=== PATIENT | male | born 1945 | race Caucasian/White ===

== ENCOUNTER → 2018-04-26 | Outpatient (CLI) | payer SELFPAY ==
[~2018-04-26] MED LIST: ACET325T9 PO; ALLO300T PO; ASPI-630 PO; CHOL500016 PO; CYAN10005 PO; GABA-586 PO; GLUC1CAP48 PO; LISI-334 PO; METF500T16 PO; MULT1TAB52 PO; NPH,100V5 SQ; SIMV20TA3 PO; TERA10CA3 PO; TRAM50TA PO; VITA1TAB19 PO
--- NOTE | 2018-04-26 14:24 | EKG ---
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
[2018-04-26 14:53] LABS: BASO % 1 % (0-3); EOS # 0.3 x10^3/uL (0.0-0.7); EOS % 3 % (0-3); HEMATOCRIT 39.5 % (39.0-53.0); HEMOGLOBIN 13.5 g/dL (13.0-17.5); LYMPH # 1.3 x10^3/uL (1.0-4.8); LYMPH % 18 % (24-48); MEAN CORPUSCULAR HEMOGLOBIN 34 pg (25-35); MEAN CORPUSCULAR HGB CONC 34 g/dL (31-37); MEAN CORPUSCULAR VOLUME 99 fL (79-100); MONO # 0.9 x10^3/uL (0.0-1.1); MONO % 12 % (0-9); NEUT # 5.1 x10^3uL (1.8-7.7); NEUT % 67 % (31-73); PLATELET COUNT 153 x10^3/uL (140-400); RED BLOOD COUNT 3.99 x10^6/uL (4.30-5.70); RED CELL DISTRIBUTION WIDTH 13.7 % (11.5-14.5); WHITE BLOOD COUNT 7.7 x10^3/uL (4.0-11.0)
[2018-04-26 15:12] LABS: ALBUMIN 3.5 g/dL (3.4-5.0); ALBUMIN/GLOBULIN RATIO 1.1 (1.0-1.7); CALCIUM 9.7 mg/dL (8.5-10.1); CREATININE 1.6 mg/dL (0.7-1.3); GFR 42.5; POTASSIUM 4.4 mmol/L (3.5-5.1); TOTAL BILIRUBIN 0.4 mg/dL (0.2-1.0); TOTAL PROTEIN 6.7 g/dL (6.4-8.2)
[2018-04-27 02:17] LABS: HEMOGLOBIN A1C 8.6 % (4.8-5.6)
== END | disposition home or self-care (01) ==
LOC: SURGPAT 13:17
PROVIDERS: ATTEND Neurological Surgery
DX: Z01.818 Encounter for other preprocedural examination (principal); I10 Essential (primary) hypertension
CPT/HCPCS: 36415; 80053; 83036; 85025; 87641; 93005

== ENCOUNTER 2018-05-06 08:19 | Day surgery (SDC) | payer SELFPAY ==
[~2018-05-06] VITALS: Ht 177.8 cm; Wt 131.5 kg
[~2018-05-06 08:19] MED LIST changes: +BACITRACIN 50,000 UNIT in IV NORMAL SALINE 1000ML BAG 1,000 ML IRR ONE; +BUPIVAC MPF-EPI 0.5%-1:200000 30 ML VIAL. INJ ONE; +GELATIN SPONGE SIZE 100. ONE; +HYDROmorphone 2 MG/ML VIAL IV PRN; +IV RINGERS,LACTATED 1000ML 1,000 ML IV SCH; +KETOROLAC 60 MG/2 ML INJ FOR OR. ONE; +LIDOCAINE 1% PF 2 ML VIAL. ID PRN; +MORPHINE SULFATE 2 MG/ML VIAL. IV PRN; +ONDANSETRON PF 4 MG/2 ML VIAL. IV PRN; +PROCHLORPERAZINE 10 MG/2 ML VIAL. IV PRN; +THROMBIN TOPICAL 20,000 UNIT SPRAY.SYRN KIT TP ONE; +fentaNYL PF VIAL 100 MCG/2 ML VIAL IV PRN
[2018-05-06] MEDS ORDERED: ceFAZolin SODIUM 3 GM in IV DEXTROSE 5% 100ML 100 ML IV PRN (09:00)
[2018-05-06] MEDS ORDERED: PROPOFOL 20 ML IV ONE ×2 (09:52→13:16)
[2018-05-06] MEDS ORDERED: DEXAMETHASONE SOD PHOS 20 MG/5 ML VIAL. ONE (09:53)
[2018-05-06] MEDS ORDERED: ONDANSETRON PF 4 MG/2 ML VIAL. ONE (09:53)
[2018-05-06] MEDS ORDERED: SUCCINYLCHOLINE 200 MG/10 ML VIAL. ONE (09:53)
[2018-05-06] MEDS ORDERED: ROCURONIUM 50 MG/5 ML VIAL. ONE (09:54)
[2018-05-06] MEDS ORDERED: LIDOCAINE 2% PF Vial for OR 5 ML VIAL. ONE (09:55)
[2018-05-06] MEDS ORDERED: REMIFENTANIL 2 MG VIAL. IV ONE (10:18)
[2018-05-06] MEDS ORDERED: MIDAZOLAM HCL/PF 2 MG/2 ML VIAL. ONE (10:21)
[2018-05-06] MEDS ORDERED: fentaNYL PF VIAL 100 MCG/2 ML VIAL ONE (10:21)
[2018-05-06] MEDS ORDERED: PROPOFOL 50 ML IV ONE ×2 (10:22→12:22)
[2018-05-06] MEDS ORDERED: PHENYLEPHRINE in 0.9% NACL PF 1 MG/10 ML SYRINGE. IV ONE ×2 (10:30→13:16)
[2018-05-06] MEDS ORDERED: ePHEDrine PF IN SALINE 50 MG/5 ML DISP.SYRIN IV ONE (11:13)
[2018-05-06] MEDS ORDERED: POTASSIUM CL 20MEQ-0.45% NACL 1,000 ML IV SCH (12:10)
[2018-05-06] MEDS ORDERED: MAGNESIUM HYDROXIDE 2,400 MG/30 ML ORAL.SUSP. PO PRN (12:15)
[2018-05-06] MEDS ORDERED: traMADol 50 MG TABLET PO PRN (12:15)
[2018-05-06] MEDS ORDERED: diphenhydrAMINE HCL 25 MG CAPSULE PO PRN (12:15)
[2018-05-06] MEDS ORDERED: ACETAMINOPHEN 325 MG TABLET. PO PRN (12:15)
[2018-05-06] MEDS ORDERED: diphenhydrAMINE 50 MG/ML VIAL IV PRN (12:15)
[2018-05-06] MEDS ORDERED: MAG HYDROX/ALUMINUM HYD/SIMETH 30 ML ORAL.SUSP PO PRN (12:15)
[2018-05-06] MEDS ORDERED: fentaNYL PF VIAL 100 MCG/2 ML VIAL IV PRN (12:15)
[2018-05-06] MEDS ORDERED: HYDROcodone/APAP 7.5/325MG 1 TAB TABLET PO PRN ×2 (12:15)
[2018-05-06] MEDS ORDERED: CALCIUM CARBONATE 500 MG TAB.CHEW PO PRN (12:15)
[2018-05-06] MEDS ORDERED: 0.9 % SODIUM CHLORIDE 10 ML DISP.SYRIN. IV PRN (12:15)
[2018-05-06] MEDS ORDERED: DEXTROSE 50% 25 GM / 50ML DISP.SYRIN. IV PRN (12:15)
[2018-05-06] MEDS ORDERED: CYANOCOBALAMIN (VITAMIN B-12) 1,000 MCG TABLET. PO SCH (13:00)
[2018-05-06] MEDS ORDERED: LISINOPRIL 20 MG TABLET PO SCH (13:00)
[2018-05-06] MEDS ORDERED: metFORMIN 500 MG TABLET PO SCH (13:00)
[2018-05-06] MEDS ORDERED: ALLOPURINOL 300 MG TABLET. PO SCH (13:00)
[2018-05-06] MEDS ORDERED: DESFLURANE > 120 MINUTES IH ONE (13:34)
[2018-05-06] MEDS ORDERED: GABAPENTIN 300 MG CAPSULE. PO SCH (14:00)
[2018-05-06] MEDS ORDERED: METHOCARBAMOL 750 MG TABLET PO SCH (14:00)
[2018-05-06] MEDS: fentaNYL PF VIAL 100 MCG/2 ML VIAL IV PRN ×2 (15:43→15:54)
[2018-05-06] MEDS ORDERED: INSULIN LISPRO 100 UNIT/ML 3ML VIAL. SQ ONE (15:45)
--- NOTE | 2018-05-06 16:12 | OP ---
DATE OF SURGERY: 05/06/2018 PREOPERATIVE DIAGNOSIS: Lumbar spinal stenosis, lateral recess stenosis, L3-L4 and L4-L5. POSTOPERATIVE DIAGNOSIS: Lumbar spinal stenosis, lateral recess stenosis, L3-L4 and L4-L5. OPERATION PERFORMED: Bilateral hemilaminotomies with decompression of dura and nerve root L3-L4 and L4-L5. The operation was done with EMG monitoring, fluoroscopy, microscopic dissection. SURGEON: Cristhian Griffith M.D. FLOOR RENOVATOR: DAVIE Schmidt assisted with the exposure, the multilevel microdecompression as well as the closure. OPERATIVE INDICATIONS: The patient is a very pleasant 72-year-old man who developed intractable bilateral hip and leg pain, which failed conservative measures including epidural steroids and physical therapy. On imaging studies, he had multilevel disease, but the principal problems were at L3-L4 and L4-L5 bilaterally with a nerve root compression and I recommended bilateral lumbar microdecompressive surgery. I spoke about the surgery, the risks, technique and expected postoperative course and he wished to go ahead. DESCRIPTION OF PROCEDURE: Following general endotracheal anesthesia, the patient was positioned prone on the Arian frame. His lumbar region was prepped and draped in standard fashion. GONZALO hose and AV impulse boots were applied for DVT prophylaxis. A microscope was draped. Fluoroscopy was draped and brought into field. Monitoring was established. Ancef 3 grams was given less than 1 hour prior to initiation of the surgery. Using fluoroscopic guidance, a midline incision was made extending from L3 through L5. I dissected down skin and subcutaneous tissue, reflected the paraspinal muscles on the left side and brought in the microscope and using the high-speed air drill and microscopic technique beginning at L3-L4, I burred down a generous hemilaminotomy. I trimmed away very thickened ligamentum flavum and performed a partial foraminotomy. There was considerable debris and thickened ligament along with spurring and hypertrophic bone and I trimmed this material away, peeled ligamentum flavum and exposed the dura and the exiting L4 root. I did perform partial foraminotomy. I did palpate the disc, which was bulging slightly, but was extremely firm and no discectomy was warranted. I went down to L4-L5 and performed the identical operation at L4-L5. At both of these levels, the nerve roots were pushed quite far medially and under considerable pressure and following the decompression, the nerves were moving laterally nicely. Again, no discectomy was performed at L4-L5. There were a few epidural veins, which I coagulated. I did use small amounts of bone wax. I then went to the right side and in a similar fashion, operated at L3-L4 and L4-L5. At L3-L4 after decompressing the dura and the exiting root and performing a partial foraminotomy, I found that the roots were compressed, but not nearly as severely as on the left at L3-L4 and L4-L5. There was bulging disc, but not as severe. Again, it was very firm and no discectomy was warranted. L4-L5 on the right side was severely affected with the nerves quite tightly compressed and pushed medially and again, there was a wide decompression and there were nerves were moving laterally at the end of the operation after trimming away very thickened ligamentum flavum and performing a partial foraminotomy. Again, there was some disc bulging, but again the disc was extremely firm and no discectomy was warranted. At this point, then I irrigated copiously with antibiotic solution. I removed the retractor, obtained hemostasis in the muscle. I then, after irrigating, closed the wound in layers with absorbable suture and skin was closed with 4-0 subcuticular stitch. The operation went very well. The patient was taken from the room in great condition. I was quite pleased with the surgery. CRISTHIAN GRIFFITH MD DR: MICHELLE/romero JOB#: [id number] / [id number] LARRY
[2018-05-06] MEDS ORDERED: HYDR-971 PO (16:26)
[2018-05-06] MEDS ORDERED: METH-38 PO (16:29)
[2018-05-06 17:25] VITALS: BP 137/68
[2018-05-06] MEDS ORDERED: TERAZOSIN 5 MG CAPSULE. PO SCH (21:00)
[2018-05-06] MEDS ORDERED: SIMVASTATIN 20 MG TABLET PO SCH (21:00)
[2018-05-06] MEDS ORDERED: NON FORMULARY ITEM (Gluc 2KCL/Chondr/Coll Hy/Hy Ac (Glucosamine & Chondroitin Cap) 1 EACH) PO SCH (21:00)
[2018-05-06] MEDS ORDERED: INSULIN GLARGINE 300 UNITS/3 ML INSULN.PEN. SQ SCH (21:00)
[2018-05-06] MEDS ORDERED: DOCUSATE SODIUM 100 MG CAPSULE. PO SCH (21:00)
[2018-05-07] MEDS ORDERED: VITAMIN B COMPLEX TABLET. PO SCH (09:00)
[2018-05-07] MEDS ORDERED: ASPIRIN CHEWABLE 81 MG TABLET. PO SCH (09:00)
[2018-05-07] MEDS ORDERED: CHOLECALCIFEROL (VITAMIN D3) 5,000 UNIT CAPSULE PO SCH (09:00)
[2018-05-07] MEDS ORDERED: MULTIVITAMIN with MINERAL TABLET. PO SCH (09:00)
--- NOTE | 2018-05-07 11:00 | PREOP HP ---
DATE OF SERVICE: 05/06/2018 HISTORY OF PRESENT ILLNESS: The patient is a pleasant 72-year-old who is having difficulty with posterior thigh and buttock pain, left greater than right. The problem started about 1 year ago and has been worse since August. He says the pain is constant and increasing with bending. Ibuprofen helps him. He has been taking ibuprofen and gabapentin. The pain is in his posterior thighs and buttocks and can reach a 10/10. He has had epidural steroid injections without help. He has tried physical therapy without help. He says he tries to go distances, but must use a wheelchair because pain is severe. He did see a chiropractor multiple times again without significant benefit. He says that his legs are diffusely weak. PAST MEDICAL HISTORY: Arthritis, gout, swelling of limbs, diabetes. PAST SURGICAL HISTORY: Denies. FAMILY HISTORY: Cancer and spine problems. 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 . Denies regular exercise. Denies substance abuse. Tobacco use and alcohol consumption. ALLERGIES: No known drug allergies. CURRENT MEDICATIONS: Metformin, gabapentin rely on allopurinol, lisinopril, terazosin, simvastatin, B12, D3, ibuprofen, aspirin 81, glucosamine, multivitamin. REVIEW OF SYSTEMS: A 12-point review of systems was obtained and is noncontributory except that mentioned above. PHYSICAL EXAMINATION: NEUROSURGERY EXAMINATION: GENERAL APPEARANCE: Alert, pleasant, no acute distress. HEENT: Normocephalic, atraumatic. SKIN: Warm and dry. MUSCULOSKELETAL: Lumbar paraspinal muscle bulk is normal, restricted range of motion of lumbar spine, foci-ri-mevpehjj tenderness of lower lumbar spine with palpation, normal range of motion of the lower extremities bilaterally. EXTREMITIES: No clubbing, cyanosis or edema. NEUROLOGIC: Alert and oriented x 3. Normal recent and remote memory. Strength 5/5 in bilateral lower extremities, sensory was intact to light touch in bilateral lower extremities, reflexes were present and symmetric in the lower extremities bilaterally, negative straight leg raising bilaterally, normal gait. IMAGING: Reviewed. I reviewed a lumbar MRI scan. On that study, there are multiple abnormalities. At L4-L5, there is severe lumbar spinal stenosis due to disk bulging and hypertrophic facets. At L3-L4, there is severe spinal stenosis due to disk bulging and hypertrophic facets. At L2-L3, there is a moderate canal stenosis. At L1-L2, there is again moderate canal stenosis, which is more significant on the right side related to moderate disc herniation on the right side at that level. ASSESSMENT/ PLAN: I believe the problems at L3-L4 and L4-L5 are responsible for the majority of his pain. I recommended them that we decompress these levels. It may be that some of these symptoms are from the degenerative disc problems at L1-L2 and L2-L3 and I explained that he may have some residual pain following that decompression, but I felt that decompressing L3-L4 and L4-L5 would offer him significant relief with limited risks. He understands the rationale, the technique and the risks and the expected postoperative course. He would like to go ahead with surgery. We will make the arrangements. MARÍA GRIFFITH MD DR: MICHELLE/romero JOB#: [id number] / [id number] LARRY
--- NOTE | 2018-05-08 18:07 | PATHOLOGY ---
[facility] Accession Number: [id number] . 01 Material submitted: . LUMBAR DECOMPRESSION . 01 Clinical history: . Lumbar stenosis and neurogenic claudication . 02 Diagnosis: Segments of fibrocartilaginous, fibroadipose, and skeletal muscle tissue and bone, lumbar decompression: - Degenerative changes of fibrocartilaginous tissue. LBQ/05/08/2018 . 02 Comment: Sections of the lumbar decompression show degenerative changes of fibrocartilaginous tissue. There is no evidence of an acute inflammatory process or malignancy. There are focal deposits of polarizable crystalline material identified within fibrocartilaginous tissue. (JPM/db; 05/08/18) . 02 Electronically signed: . Aman Reyes MD, Pathologist NPI- [id number] . 01 Gross description: . Received in formalin labeled "Geovani Sumner, lumbar decompression," are several pieces of glistening, fibrous tissue measuring 6.1 x 5.6 x 3.7 cm in aggregate dimensions, containing small fragments of possible bone. The tissue submitted representatively in cassette A1, following decalcification. (TSD; 05/07/2018) TOB/TOB . 02 Microscopic: . Y . 02 Pathologist provided ICD-10: M51.36 . 02 CPT . 721657, 573540 Specimen Comment: A courtesy copy of this report has been sent to Specimen Comment: [phone], . Specimen Comment: Report sent to / DR OVIEDO Performed at: [address], [place], [place] [id number] MD Jose Daniel Gonzalez MD Phone: [phone] Performed at: 02 [facility] [address] [place], [place] [id number] MD Aman Reyes MD Phone: [phone]
== END 2018-05-06 17:35 | disposition home or self-care (01) ==
LOC: SURG 08:19
PROVIDERS: ATTEND Neurological Surgery
DX: M48.061 Spinal stenosis, lumbar region without neurogenic claudication (principal); M51.16 Intervertebral disc disorders with radiculopathy, lumbar region; M19.90 Unspecified osteoarthritis, unspecified site; E11.9 Type 2 diabetes mellitus without complications; M10.9 Gout, unspecified; Z72.89 Other problems related to lifestyle; Z72.0 Tobacco use; Z79.84 Long term (current) use of oral hypoglycemic drugs; Z79.899 Other long term (current) drug therapy
CPT/HCPCS: 63030; 82962; J0330; J0780; J1100; J1885; J2001; J2250; J2370; J2405; J2704; J3010; J3490; J7030; J7120; 76000; 88304; 88311; A7015; J1815

== ENCOUNTER → 2019-06-11 | Outpatient (CLI) | payer MEDICARE ==
[~2019-06-11] MED LIST changes: -BACITRACIN 50,000 UNIT in IV NORMAL SALINE 1000ML BAG 1,000 ML IRR ONE; -BUPIVAC MPF-EPI 0.5%-1:200000 30 ML VIAL. INJ ONE; +CYAN-25 PO; -CYAN10005 PO; -GABA-586 PO; +GABA300C18 PO; -GELATIN SPONGE SIZE 100. ONE; +HYDR-3164 PO; -HYDROmorphone 2 MG/ML VIAL IV PRN; -IV RINGERS,LACTATED 1000ML 1,000 ML IV SCH; -KETOROLAC 60 MG/2 ML INJ FOR OR. ONE; -LIDOCAINE 1% PF 2 ML VIAL. ID PRN; +METH-38 PO; -MORPHINE SULFATE 2 MG/ML VIAL. IV PRN; -ONDANSETRON PF 4 MG/2 ML VIAL. IV PRN; -PROCHLORPERAZINE 10 MG/2 ML VIAL. IV PRN; -THROMBIN TOPICAL 20,000 UNIT SPRAY.SYRN KIT TP ONE; -fentaNYL PF VIAL 100 MCG/2 ML VIAL IV PRN
--- NOTE | 2019-06-11 13:25 | CARD ---
MR#: [id number] Date of Study: 06/11/2019 Ordering Physician: MEREDITH HESTER, Referring Physician: MEREDITH HESTER, Tech: Ana Nassar APPROVED REPORT EXAM: Two-dimensional and M-mode echocardiogram with Doppler and color Doppler. Other Information HR: 69bpm INDICATION Pre-Op RISK FACTORS Hypertension Diabetes 2D DIMENSIONS RVDd3.2 (2.9-3.5cm)Left Atrium(2D)3.9 (1.6-4.0cm) IVSd1.1 (0.7-1.1cm)Aortic Root(2D)3.3 (2.0-3.7cm) LVDd5.5 (3.9-5.9cm)LVOT Diameter2.1 (1.8-2.4cm) PWd1.2 (0.7-1.1cm)LVDs3.1 (2.5-4.0cm) FS (%) 43.6 %SV110.3 ml LVEF(%)74.2 (>50%) Aortic Valve AoV Peak David.117.5cm/sAoV VTI25.3cm AO Peak GR.5.5mmHgLVOT Peak David.95.4cm/s AO Mean GR.4mmHgAVA (VMAX)2.89cm2 Mitral Valve MV E Aoljuxjl20.1cm/sMV DECEL [id number] MV A Byrowtkr50.2cm/sE/A Ratio0.7 Pulmonary Valve PV Peak Ssbxjmcn54.6cm/s Tricuspid Valve TR P. Tqckaayz701kn/sRAP SWGWSAPC5veXq TR Peak Gr.54fkGcKECB09nrWv Pulmonary Vein S1 Fxifqbcc32.7cm/sD2 Wqefmtbv35.8cm/s PVa valxazqq569ahae LEFT VENTRICLE The left ventricle is normal size. There is mild to moderate concentric left ventricular hypertrophy. The left ventricular systolic function is normal. The Ejection Fraction is 55%. There is normal LV s egmental wall motion. Transmitral Doppler flow pattern is Grade I-abnormal relaxation pattern. RIGHT VENTRICLE The right ventricle is mildly dilated. There is normal right ventricular wall thickness. The right ve ntricular systolic function is normal. ATRIA The left atrium size is normal. The right atrium is moderately dilated. The interatrial septum is int act with no evidence for an atrial septal defect or patent foramen ovale as noted on 2-D or Doppler i maging. AORTIC VALVE The aortic valve is calcified but opens well. Doppler and Color Flow revealed no significant aortic r egurgitation. There is no significant aortic valvular stenosis. MITRAL VALVE The mitral valve is normal in structure and function. There is no evidence of mitral valve prolapse. There is no mitral valve stenosis. Doppler and Color-flow revealed trace mitral regurgitation. TRICUSPID VALVE The tricuspid valve is normal in structure and function. Doppler and Color Flow revealed trace tricus pid regurgitation with an estimated PAP of 28 mmHg. There is no tricuspid valve prolapse or vegetatio n. There is no tricuspid valve stenosis. PULMONIC VALVE The pulmonic valve is not well visualized. Doppler and Color Flow revealed no pulmonic valvular regur gitation. GREAT VESSELS The aortic root is normal in size. The IVC is normal in size and collapses >50% with inspiration. PERICARDIAL EFFUSION There is no evidence of significant pericardial effusion. Critical Notification Critical Value: No <Conclusion> The left ventricular systolic function is normal. The Ejection Fraction is 55%. There is normal LV segmental wall motion. Transmitral Doppler flow pattern is Grade I-abnormal relaxation pattern. Trace mitral regurgitation. Trace tricuspid regurgitation with an estimated PAP of 28 mmHg. There is no evidence of significant pericardial effusion. Signed by : Phil Chambers, Electronically Approved : 06/11/2019 13:25:20
== END | disposition home or self-care (01) ==
LOC: ECHO 10:43
PROVIDERS: ATTEND Internal Medicine Cardiovascular Disease
DX: Z01.810 Encounter for preprocedural cardiovascular examination (principal); I11.9 Hypertensive heart disease without heart failure; I35.8 Other nonrheumatic aortic valve disorders
CPT/HCPCS: 93306

== ENCOUNTER → 2019-06-23 | Outpatient (CLI) | payer MEDICARE ==
[~2019-06-23] MED LIST changes: +POLY17PO29 PO; +SIMV20TA18 PO; -SIMV20TA3 PO; +TAMS0.4C97 PO
[2019-06-23 09:17] LABS: BASO # 0.1 x10^3/uL (0.0-0.2); BASO % 1 % (0-3); EOS # 0.3 x10^3/uL (0.0-0.7); EOS % 3 % (0-3); HEMOGLOBIN 14.7 g/dL (13.0-17.5); LYMPH # 1.9 x10^3/uL (1.0-4.8); LYMPH % 22 % (24-48); MEAN CORPUSCULAR HEMOGLOBIN 32 pg (25-35); MEAN CORPUSCULAR HGB CONC 34 g/dL (31-37); MEAN CORPUSCULAR VOLUME 96 fL (79-100); MONO % 12 % (0-9); NEUT # 5.4 x10^3/uL (1.8-7.7); NEUT % 63 % (31-73); PLATELET COUNT 167 x10^3/uL (140-400); RED BLOOD COUNT 4.56 x10^6/uL (4.30-5.70); RED CELL DISTRIBUTION WIDTH 13.7 % (11.5-14.5); WHITE BLOOD COUNT 8.7 x10^3/uL (4.0-11.0)
[2019-06-23 09:26] LABS: PROTHROMBIN TIME PATIENT 12.9 SEC (11.7-14.0)
[2019-06-23 09:36] LABS: ALBUMIN 3.6 g/dL (3.4-5.0); CALCIUM 9.6 mg/dL (8.5-10.1); CREATININE 1.4 mg/dL (0.7-1.3); GFR 49.4; POTASSIUM 4.7 mmol/L (3.5-5.1)
[2019-06-23 10:06] LABS: BILIRUBIN,URINE NEGATIVE (NEG); CLARITY,URINE CLEAR; COLOR,URINE YELLOW; NITRITE,URINE NEGATIVE (NEG); PH,URINE 5.5; PROTEIN,URINE NEGATIVE (NEG-TRACE)
[2019-06-23 10:12] LABS: BACTERIA,URINE 0 /HPF (0-FEW); RBC,URINE 0 /HPF (0-2); SQUAMOUS EPITHELIAL CELL,UR FEW /LPF; WBC,URINE OCC /HPF (0-4)
--- NOTE | 2019-06-24 13:22 | RAD ---
PA and lateral chest. HISTORY: Preop evaluation, right knee replacement PA and lateral views were taken of the chest. Heart is upper normal in size. There is not evidence of heart failure. There is no pleural effusion. There are no confluent infiltrates. There is hypertrophic change in the thoracic spine. IMPRESSION: 1. No acute chest disease. Electronically signed by: Hoang Aggarwal MD (06/24/2019 1:19 PM) [facility]
== END | disposition home or self-care (01) ==
LOC: SURGPAT 13:12
PROVIDERS: ATTEND Orthopaedic Surgery
DX: Z01.818 Encounter for other preprocedural examination (principal); M17.11 Unilateral primary osteoarthritis, right knee; I10 Essential (primary) hypertension
CPT/HCPCS: 36415; 71046; 80048; 81001; 82040; 82306; 85025; 85610; 85651; 85730; 87641

== ENCOUNTER → 2019-10-16 | Outpatient (CLI) | payer MEDICARE, OTHER ==
[2019-10-16 15:07] LABS: BASO # 0.1 x10^3/uL (0.0-0.2); BASO % 1 % (0-3); EOS # 0.2 x10^3/uL (0.0-0.7); EOS % 3 % (0-3); HEMOGLOBIN 13.9 g/dL (13.0-17.5); LYMPH # 1.9 x10^3/uL (1.0-4.8); LYMPH % 22 % (24-48); MEAN CORPUSCULAR HEMOGLOBIN 33 pg (25-35); MEAN CORPUSCULAR HGB CONC 33 g/dL (31-37); MEAN CORPUSCULAR VOLUME 98 fL (79-100); MONO # 0.8 x10^3/uL (0.0-1.1); MONO % 10 % (0-9); NEUT # 5.3 x10^3/uL (1.8-7.7); NEUT % 64 % (31-73); PLATELET COUNT 152 x10^3/uL (140-400); RED BLOOD COUNT 4.28 x10^6/uL (4.30-5.70); RED CELL DISTRIBUTION WIDTH 14.8 % (11.5-14.5); WHITE BLOOD COUNT 8.3 x10^3/uL (4.0-11.0)
[2019-10-16 15:16] LABS: BILIRUBIN,URINE NEGATIVE (NEG); CLARITY,URINE CLEAR; COLOR,URINE YELLOW; NITRITE,URINE NEGATIVE (NEG); PH,URINE 5.5; PROTEIN,URINE NEGATIVE (NEG-TRACE); UROBILINOGEN,URINE 0.2 mg/dL (0.2 mg/dL)
[2019-10-16 15:18] LABS: PROTHROMBIN TIME PATIENT 13.6 SEC (11.7-14.0)
[2019-10-16 15:21] LABS: ALBUMIN 3.4 g/dL (3.4-5.0); CALCIUM 9.5 mg/dL (8.5-10.1); CREATININE 1.4 mg/dL (0.7-1.3); GFR 49.3; POTASSIUM 4.5 mmol/L (3.5-5.1)
[2019-10-16 15:29] LABS: BACTERIA,URINE 0 /HPF (0-FEW); RBC,URINE 0 /HPF (0-2)
[2019-10-16 15:30] LABS: SQUAMOUS EPITHELIAL CELL,UR FEW /LPF
[2019-10-17 00:07] LABS: HEMOGLOBIN A1C 6.7 % (4.8-5.6)
== END | disposition home or self-care (01) ==
LOC: SURGPAT 13:28
PROVIDERS: ATTEND Orthopaedic Surgery
DX: M19.90 Unspecified osteoarthritis, unspecified site (principal)
CPT/HCPCS: 36415; 80048; 81001; 82040; 82306; 83036; 85025; 85610; 85651; 85730; 87086; 87641

== ENCOUNTER → 2020-01-30 | Outpatient (CLI) | payer MEDICARE ==
[~2020-01-30] MED LIST changes: +ASPI325T11 PO; +CELE200C PO; +FERR-36 PO; +HYDR-2761 PO; +MULT-445 PO; -MULT1TAB52 PO; +OXYC1TAB15 PO; +VITA25006 PO
== END | disposition home or self-care (01) ==
LOC: SURGPAT 12:48
PROVIDERS: ATTEND Orthopaedic Surgery
DX: Z01.812 Encounter for preprocedural laboratory examination (principal); Z11.59 Encounter for screening for other viral diseases; M17.11 Unilateral primary osteoarthritis, right knee
CPT/HCPCS: 87641; U0003

== ENCOUNTER 2020-02-03 09:47 | Inpatient (IN) | payer MEDICARE ==
--- NOTE | 2020-02-02 17:34 | PDOC1 ---
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 He had back surgery with Dr. hopper, and some of the sciatic symptoms got better but now the knee arthritis has continued to bother him and interfere with activities of daily living. He has started using a cane due to the knee arthritis pain. He has been using narcotic medications for the knee pain, and had cortisone injections into the knee previously. Past Medical History Past Medical History Diabetes, hypertension, gout Cardiovascular: HTN Rheumatologic: Gout Endocrine: Diabetes Past Surgical History Past Surgical History Back surgery 05/06/2018 Carpal tunnel release 11/08/2018 Family History Family History Mothercancer Fathercancer Family History: Cancer Social History Smoke: No ALCOHOL: none Current Medications Current Medications Current Medications Morphine Sulfate 5 mg/Ketorolac Tromethamine 30 mg/Ropivacaine 60 ml/Epinephrine HCl 0.5 mg/Sodium Chloride 100 ml @ 100 mls/hr 1X ONCE INT ART ; Start 02/03/20 at 06:00; Stop 02/03/20 at 06:59 Ondansetron HCl (Zofran) 4 mg PRN Q6HRS PRN IV NAUSEA/VOMITING; Start 02/03/20 at 07:00; Stop 02/04/20 at 06:59 Fentanyl Citrate (Fentanyl 2ml Vial) 25 mcg PRN Q5MIN PRN IV MILD PAIN 1-3; Start 02/03/20 at 07:00; Stop 02/04/20 at 06:59 Fentanyl Citrate (Fentanyl 2ml Vial) 50 mcg PRN Q5MIN PRN IV MODERATE TO SEVERE PAIN; Start 02/03/20 at 07:00; Stop 02/04/20 at 06:59 Morphine Sulfate (Morphine Sulfate) 1 mg PRN Q10MIN PRN IV SEVERE PAIN 7-10; Start 02/03/20 at 07:00; Stop 02/04/20 at 06:59 Ringer's Solution 1,000 ml @ 30 mls/hr Q24H IV ; Start 02/03/20 at 07:00; Stop 02/03/20 at 18:59 Lidocaine HCl (Xylocaine-Mpf 1% 2ml Vial) 2 ml PRN 1X PRN ID PRIOR TO IV START; Start 02/03/20 at 07:00; Stop 02/04/20 at 06:59 Hydromorphone HCl (Dilaudid) 0.5 mg PRN Q10MIN PRN IV SEV PAIN, Second choice; Start 02/03/20 at 07:00; Stop 02/04/20 at 06:59 Prochlorperazine Edisylate (Compazine) 5 mg PACU PRN PRN IV NAUSEA, MRX1; Start 02/03/20 at 07:00; Stop 02/04/20 at 06:59 Active Scripts Active Reported Noxifol-D3 2,500 Unit-1 mg Tab (Vitamin D3/Folic Acid) 2,500 Unit Tablet 1 Tab PO DAILY 30 Days Hydrocodone-Apap 5-325 (Hydrocodone Bit/Acetaminophen) 1 Tab Tablet 1 Tab PO PRN Q6HRS PRN Iron (Ferrous Sulfate) 325 Mg Tablet 1 Tab PO DAILY 30 Days Miralax (Polyethylene Glycol 3350) 17 Gm Powd.pack 1 Pkt PO DAILY Flomax (Tamsulosin Hcl) 0.4 Mg Cap.er.24h 0.8 Mg PO HS Novolin N (Nph, Human Insulin Isophane) 100 Unit/1 Ml Vial 30 Unit SQ BID Lisinopril 20 Mg Tablet 20 Mg PO HS Metformin Hcl 500 Mg Tablet 500 Mg PO HS Simvastatin 20 Mg Tablet 20 Mg PO HS Allopurinol 300 Mg Tablet 300 Mg PO DAILY Allergies Allergies: Coded Allergies: No Known Drug Allergies (Unverified , 10/16/19) ROS Review of System Activity limited due to knee pain. No chest pain. Mild shortness of breath with heavy exertional activities. No syncope, no palpitations. No orthopnea or PND. No angina. Physical Exam General: Alert, Cooperative HEENT: Atraumatic Lungs: Normal air movement Heart: RRR Abdomen: Soft Extremities: Other (The RIGHT knee shows an antalgic gait, walking with flexed knees. There is varus alignment. No masses. Moderate effusion. Tenderness on the joint lines. Range of motion is 5-115 degrees. There is crepitus with range of motion, and pain at the extremes of motion. The knee is stable to varus and valgus stress without subluxation or laxity. Muscle strength is slightly weak for the quadriceps 4+/5 which may be due to pain or avoidance, and does not seem neurogenic, and the muscle tone and bulk is slightly decreased. The hamstring strength is 5/5. The skin is normal with no scars, rashes, lesions or ulcers. Light touch sensation is intact. No edema and no varicosities. Dorsalis pedis pulse is intact and capillary refill is normal. ) Skin: No breakdown, No significant lesion Neuro: Normal speech Images Images Report reviewed, images independently reviewed. The right knee has severe osteoarthritis with zild-ar-ubvr contact, and degenerative loose bodies. These are Kellgren-Jeet grade 3 osteoarthritis changes with narrowing, multiple osteophytes, sclerosis, kweu-zz-tksp contact and malalignment. [facility] [address] [place] [address] IMAGING REPORT Signed PATIENT: LAINE BRANHAM ACCOUNT: [id number] : 1945 LOCATION: [facility] AGE: 73 SEX: M EXAM STATUS: REG CLI ORD. PHYSICIAN: BATSHEVA FIGUEROA MD REASON: PROCEDURE: KNEE RIGHT 2V Examination: 2 views of the right knee and 2 views of the bilateral hips HISTORY: History of right knee pain, hip pain COMPARISON: Knee radiograph from 09/15/2018. Findings: Severe joint space loss identified in the medial, lateral, patellofemoral compartments. Calcified loose body or soft tissue calcification identified in the suprapatellar region of the knee joint. The bilateral femoral heads within the acetabulum. Moderate joint space loss identified in the bilateral hip joints. IMPRESSION: 1. Moderate degenerative changes bilateral hip joints. 2. Severe tricompartmental degenerative changes. 3. Calcified loose body or soft tissue calcification identified in the suprapatellar region of the knee joint. Electronically signed by: Frank Vargas MD (03/20/2019 5:19 PM) [facility] DICTATED and SIGNED BY: FRANK VARGAS MD DATE: 03/20/19 1719 VTE Prophylaxis Ordered VTE Prophylaxis Devices: Yes VTE Pharmacological Prophylaxi: Yes Assessment/Plan Assessment/Plan He has symptomatic severe knee osteoarthritis. We discussed options for treatment. He tried nonoperative treatment previously. We discussed the potential risks of infection, neurovascular injury, bleeding, blood clots, need for revision surgery, or other potential surgical or anesthetic complications. We discussed robotic total knee arthroplasty and my reasoning for use of that equipment. All of his questions about surgery were answered and he desires to proceed. He is here today for elective right total knee arthroplasty with robot assistance. Justicifation of Admission Dx: Justifications for Admission: Justification of Admission Dx: N/A BATSHEVA FIGUEROA MD Feb 02, 2020 17:34
[2020-02-02] MEDS: KETOROLAC 30MG VIAL 30 MG, BUPIVACAINE MPF 0.25% 20 ML, EPINEPHrine 0.5 MG in TOTAL VOL... INT ART SCH (23:22)
[~2020-02-03] VITALS: Ht 172.7 cm; Wt 130.6 kg
[2020-02-03] VITALS (7 sets, daily range): BP systolic 118–144; BP diastolic 55–62
[~2020-02-03 09:47] MED LIST changes: +ACETAMINOPHEN 500 MG TABLET PO PRN; -ASPI325T11 PO; -CELE200C PO; +CELECOXIB 100 MG CAPSULE. PO SCH; +DEXAMETHASONE SOD PHOS 4 MG/ML VIAL ONE; +GLYCOPYRROLATE 1 MG/5 ML VIAL. ONE; +HYDROmorphone 2 MG/ML VIAL IV PRN; +IV RINGERS,LACTATED 1000ML 1,000 ML IV SCH; +LIDOCAINE 1% PF 2 ML VIAL. ID PRN; +LIDOCAINE 2% PF 5 ML VIAL. ONE; +MORPHINE SULFATE 2 MG/ML VIAL. IV PRN; +MORPHINE SULFATE 5 MG, KETOROLAC 30MG VIAL 30 MG, ROPIVacaine 0.5% PF 60 ML, EPINEPHrin... INT ART ONE; +ONDANSETRON PF 4 MG/2 ML VIAL. IV PRN; +ONDANSETRON PF 4 MG/2 ML VIAL. ONE; -OXYC1TAB15 PO; +PROCHLORPERAZINE 10 MG/2 ML VIAL. IV PRN; +PROPOFOL 10 MG/ML (20ML) VIAL. IV ONE; +ROCURONIUM 50 MG/5 ML VIAL. ONE; +TRANEXAMIC ACID 1,000 MG in IV NS 50ML -- 1ST BAG INJ ONE; +TRANEXAMIC ACID 1,000 MG in IV NS 50ML -- 2ND BAG INJ ONE; +ceFAZolin SODIUM 3 GM in IV D5W 100 ML IV PRN; +fentaNYL PF VIAL 100 MCG/2 ML VIAL IV PRN; +fentaNYL PF VIAL 100 MCG/2 ML VIAL ONE
[2020-02-03] MEDS ORDERED: INSULIN LISPRO 100 UNIT/ML 3ML VIAL for OP,RR ONLY. SQ PRN (10:30)
[2020-02-03] MEDS ORDERED: TOBRAMYCIN POWDER 1.2 GM VIAL. ONE (12:54)
[2020-02-03] MEDS ORDERED: VANCOMYCIN 1 GM VIAL. ONE (12:54)
[2020-02-03] MEDS ORDERED: SUCCINYLCHOLINE 200 MG/10 ML VIAL. ONE (12:59)
[2020-02-03] MEDS ORDERED: fentaNYL PF VIAL 100 MCG/2 ML VIAL ONE (14:09)
[2020-02-03] MEDS ORDERED: PROPOFOL 10 MG/ML (20ML) VIAL. IV ONE (14:13)
[2020-02-03] MEDS ORDERED: SEVOFLURANE > 120 MINUTES. IH ONE (14:23)
[2020-02-03] MEDS ORDERED: IV NORMAL SALINE 1000ML BAG 1,000 ML IV SCH (16:16)
--- NOTE | 2020-02-03 16:16 | PDOC4 ---
Operative Note Operative Note Date of Procedure: February 03, 2020 Pre-Op Diagnosis: Unilateral primary osteoarthritis, right knee. M17.11 Post-Op Diagnosis: same Procedure: right total knee arthroplasty with patella resurfacing, robotic assisted, CPT 06473 Surgeon: Batsheva Hernández MD Information Assurance Specialist: NOEMI Herrera Anesthesia: General EBL: 100 mL Specimens Obtained: right knee bone and soft tissue Complications: none Drains: Hemovac plus pain catheter Tourniquet time: 87 Minutes Tourniquet Pressure: 300 mm Hg Indications for Procedure: Knee arthritis pain, affecting quality of life, unrelieved by nonoperative management Findings: Severe osteoarthritis with bone on bone contact and eburnated bone of the femur and the patella. Extensive synovitis in the suprapatellar pouch which required resection of a large amount of synovium for visualization of the anterior femur for sizing. Electrocautery was used during the resection of the synovium but there is more bleeding than usual because of the extensive synovitis and need for extensive synovial resection. Multiple loose bodies. There was a degenerative osteochondral fragment in the distal quadriceps tendon which was resected. Medial collateral release from the tibia and downsizing of the tibia and removal of osteophytes was required for balancing. Implants: Galindo [employer] Nephew Journey II Total Knee System, Size 6 right bicruciate stabilized Journey II BCS cobalt chrome femoral component, size 5 right Journey nonporous tibial baseplate, size 3-4 12 mm right Journey II BCS XLPE articular insert, 32 mm oval Samina II resurfacing patellar component Procedure in Detail: The patient was identified in the preoperative holding area, and the correct right lower extremity was marked by me. The patient was taken to the operating room where the patient was anesthetized by the Department of Anesthesia. Preoperative antibiotics were given intravenously. Tranexamic acid 1 g was given intravenously for intraoperative hemostasis. A "time-out" procedure was performed. The patient was positioned supine on the operative table with a tourniquet on the upper right thigh. A right hip bump and heel bump were attached to the operating table for later intraoperative positioning. The right lower limb was thoroughly scrubbed, then sterile Chloraprep solution was applied, and the limb was draped in sterile fashion. The operating team wore exhaust ventilated hoods with [employer] Personal Protection Toga Zippered Peel-Away protection system. An impervious stockinet and an adhesive drape were used such that the skin was entirely covered. The limb was exsanguinated with an Esmarch bandage, and the tourniquet was inflated. A midline skin incision was made with a scalpel using the patella and tibial tubercle as landmarks. Electrocautery was used for hemostasis. My fws faculty assistant used rake retractors and a laparotomy sponge. A medial parapatellar arthrotomy incision was used with extension into the distal quadriceps tendon. The patella was retracted laterally and Hohmann retractors were now used by my fws faculty assistant. Excess synovium, the menisci, and the cruciate ligaments were resected sharply. A periarticular multimodal ropivacaine anesthetic injection was used in the suprapatellar pouch and distal quadriceps muscle. The patella was everted and exposed. The patella thickness was measured with a caliper, and then cut freehand with a saw, using caliper measurements to assess the resection. The lateral retinaculum was partially released from the lateral patella using electrocautery. Rongeurs were used to make sure there were no remaining exposed patellar osteophytes medially or laterally. The patella was sized, and then drilled for an oval three-peg patella component. The tibial tracker array for the NAVIO system was applied to the tibial crest four finger breadths below the tibial tubercle, using percutaneous incisions and bicortical pins. The femoral tracker array was applied outside of the original incision using two separate stab incisions using bicortical pins. Checkpoint verification pins were applied to the femur and tibia. Using the point probe, the medial and lateral malleoli were localized and the locations were stored. The center of the tibia was noted at the anterior cruciate ligament insertion and stored. The center of the femur was marked at the intersection of Whitesidess line with the transepicondylar axis. The hip center calculation was performed with range of motion of the hip. The femur n eutral position was identified, and simulated weightbearing was performed with axial compression on the foot. Range of motion without stress was performed and the data collected. Range of motion with valgus stress, and range of motion with varus stress data collection was also performed. Rotational references include the Whitesidess line, and the trans-epicondylar axis. The femoral articular surface was now mapped in 3 dimensions using the point probe and digital data collected. The tibial condyle articular surfaces and cortical edges were mapped in 3 dimensions using the point probe including the medial and lateral tibial plateau. Implant planning was now performed on-screen with manipulation of the implant sizes, cut thicknesses and gaps, component rotation, component flexion/extension and component varus/valgus until satisfactory ligament balance, alignment and stability of the knee was expected throughout the range of motion. My fws faculty assistant held Hohmann retractors and an [facility] retractor to protect the medial and lateral collateral ligaments, the patellar tendon, the skin and the other soft tissues. The point probe was used to confirm the location of the checkpoint verification pins. The distal femoral surface was now prepared using the Anspach jesika with footpedal, and the NAVIO handpiece for bone removal to the previously planned distal femoral resection. The crosshairs at the pin locations were marked by using a mallet and the point probe for definitive location. A 5-in-1 Journey II cutting guide was then applied and the position was checked with the virtual maddie wing from the NAVIO to ensure proper placement as the pins were applied. The posterior, anterior, and all chamfer cuts were made with the oscillating saw. Excess bone was removed with an osteotome and rongeurs. The tibial cutting guide was applied, positioned using the NAVIO virtual maddie wing, and secured to the upper tibia using three pins at the previously planned location. The virtual maddie wing was used to confirm the resection depth, slope and coronal alignment. The upper tibia was cut made with an oscillating saw. My fws faculty assistant held Hohmann retractors and a posterior cruciate ligament retractor to protect the medial and lateral collateral ligaments, the patellar tendon, the skin, the peroneal nerve and the other soft tissues. The upper tibia was sized with a trial baseplate. The posterior compartment was cleared of osteophytes and loose bodies. The periarticular anesthetic injection was used in the posterior compartment. The box cut for a posterior stabilized component was made. A preliminary reduction was performed with a trial femur, trial tibial baseplate and trial polyethylene. The NAVIO system was used to confirm range of motion, and postoperative stressed gap assessment. A medial release was required, using a 10 blade scalpel, and a Lindsey elevator to elevate the medial structures from the upper medial tibia. The stability was assessed using different thicknesses of tibial articular surface to find satisfactory stability and good range of motion. The rotation of the tibial component was marked on the upper tibia. Final trial reduction was now performed verifying patella tracking and tibiofemoral stability and alignment. The bone pins and tracker arrays were removed, and the checkpoint verification pins were removed. The tibia preparation was completed with a drill, saw, and fin punch at the previously noted rotation. The final implants were verified and opened. Outer gloves were changed by the operating team. Betadine lavage was used. The bone cuts were irrigated with saline using the [employer] InterPulse device and then dried with suction and laparotomy sponges. Two packages of Galindo [employer] Nephew Rally HV bone cement were mixed in powdered form with Vancomycin 1gm and Tobramycin 1.2 gm, and then vacuum-mixed with the monomer, and placed into a cement gun. The cut surfaces of the bone were thoroughly dried with suction and with laparotomy sponges for cement interdigitation. The final components were cemented into place. The knee was kept at full extension while the cement hardened, and excess cement was removed. Tranexamic acid 1 g was redosed intravenously for additional intraoperative hemostasis. The tourniquet was released, and electrocautery was used for hemostasis. A final periarticular anesthetic injection was used for pain relief. The bone pin sites on the tibial crest were closed with #3-0 Nylon sutures. A final check of [id number] and stability was made, and the polyethylene implant final size was chosen. The polyethylene implant was secured to the tibial baseplate, and the knee was reduced a final time and range of motion and stability was confirmed. Thorough irrigation was used. A pain catheter, and a 15 Fr Hemovac were inserted. Topical Vancomycin 1 gm was used during the closure. The arthrotomy was closed with interrupted [id number] #1 PDS suture. The arthrotomy incision was then run with #1 STRATAFIX Symmetric PDS Plus Knotless suture. The subcutaneous tissues were approximated initially with 2-0 PDS inverted interrupted sutures by my fws faculty assistant. Next the subcuticular layer was approximated in a running fashion with #3-0 STRATAFIX suture by my fws faculty assistant. The skin incision was then covered and reinforced by my fws faculty assistant with Acticoat, followed by a BEKA single use negative pressure wound therapy dressing Soft roll and an Chung wrap were applied. Needle and sponge counts were correct. There were no apparent complications. The patient returned to the recovery room in stable condition. BATSHEVA HERNÁNDEZ MD Feb 03, 2020 16:16
[2020-02-03] MEDS ORDERED: MORPHINE SULFATE 2 MG/ML VIAL. IVP PRN (16:30)
[2020-02-03] MEDS ORDERED: DEXTROSE 50% 25 GM / 50ML DISP.SYRIN. IV PRN (16:30)
[2020-02-03] MEDS ORDERED: 0.9 % SODIUM CHLORIDE 10 ML DISP.SYRIN. IV PRN (16:30)
[2020-02-03] MEDS ORDERED: fentaNYL PF VIAL 100 MCG/2 ML VIAL IVP PRN ×2 (16:30)
[2020-02-03] MEDS ORDERED: PROCHLORPERAZINE 5 MG TABLET. PO PRN (16:30)
[2020-02-03] MEDS ORDERED: diphenhydrAMINE 50 MG/ML VIAL IVP PRN (16:30)
[2020-02-03] MEDS ORDERED: ZOLPIDEM 5 MG TABLET. PO PRN (16:30)
[2020-02-03] MEDS ORDERED: MORPHINE SULFATE 4 MG/ML VIAL. IVP PRN (16:30)
[2020-02-03] MEDS ORDERED: CALCIUM CARBONATE 500 MG TAB.CHEW PO PRN (16:30)
[2020-02-03] MEDS ORDERED: METOCLOPRAMIDE HCL 10 MG/2 ML VIAL. IVP PRN (16:30)
--- NOTE | 2020-02-03 16:59 | RAD ---
Exam: Right knee 2 views INDICATION: Postop TECHNIQUE: Frontal and lateral views the chest Comparisons: None FINDINGS: Right knee arthroplasty changes are noted. Mild amount of air in the adjacent soft tissues. No acute fractures. Joint spaces are well-maintained. IMPRESSION: Right knee arthroplasty changes without evidence of acute complication. Electronically signed by: Farida Fletcher MD (02/03/2020 4:56 PM) [id number]
[2020-02-03] MEDS: fentaNYL PF VIAL 100 MCG/2 ML VIAL IV PRN ×2 (17:02→17:06)
--- NOTE | 2020-02-03 17:30 | NUR ---
Arrived to unit by bed from PACU. Alert and oriented x's 4. No c/o at this time. Right knee elevated on pillow with ice pack. Dressing on right knee is d/i with IAC and Hemovac drain. Pt able to wggle toes easily, warm touch and pedal pulses + bilaterally. IVF's intact and infusing. SCD on left leg and LEVON on right foot. Oriented to room and controls. Side rails up x's 2 with call light in reach. at bedside. Cont. monitor.
[2020-02-03] MEDS: ONDANSETRON PF 4 MG/2 ML VIAL. IVP SCH (18:00)
[2020-02-03] MEDS: ONDANSETRON ODT 4 MG TAB.RAPDIS. PO SCH (18:00)
[2020-02-03] MEDS: ceFAZolin SODIUM 3 GM in IV DEXTROSE 5% 100ML 100 ML IV SCH (19:33)
[2020-02-03] MEDS: TAMSULOSIN 0.4 MG CAP.ER.24H. PO SCH (20:59)
[2020-02-03] MEDS: ASPIRIN ENTERIC COATED 325 MG TABLET.DR. PO SCH (21:00)
[2020-02-03] MEDS: oxyCODONE/APAP 5/325 1 TAB TABLET PO PRN (21:00)
[2020-02-03] MEDS: metFORMIN 500 MG TABLET PO SCH (21:00)
[2020-02-03] MEDS: LISINOPRIL 20 MG TABLET PO SCH (21:02)
[2020-02-03] MEDS: SIMVASTATIN 20 MG TABLET PO SCH (21:07)
[2020-02-03] MEDS: INSULIN GLARGINE SYRINGE. SQ SCH (21:10)
[2020-02-03] MEDS: KETOROLAC 30MG VIAL 30 MG, BUPIVACAINE MPF 0.25% 20 ML, EPINEPHrine 0.5 MG in TOTAL VOL... INT ART SCH (23:13)
--- NOTE | 2020-02-03 23:22 | NUR ---
After multiple attempts to infuse IAC by repositioning Patient's leg and tubing< IAC unable to infuse. tubing and IAC capped.
[2020-02-04] MEDS: ceFAZolin SODIUM 3 GM in IV DEXTROSE 5% 100ML 100 ML IV SCH ×2 (00:57→06:47)
[2020-02-04] MEDS: oxyCODONE/APAP 5/325 1 TAB TABLET PO PRN ×5 (02:02→20:36)
[2020-02-04 02:04] VITALS: BP 117/56
[2020-02-04 03:49] LABS: HEMATOCRIT 37.3 % (39.0-53.0); HEMOGLOBIN 12.3 g/dL (13.0-17.5)
[2020-02-04 05:45] VITALS: BP 126/58
[2020-02-04] MEDS: ONDANSETRON PF 4 MG/2 ML VIAL. IVP SCH ×3 (05:46→12:00)
[2020-02-04] MEDS: KETOROLAC 30MG VIAL 30 MG, BUPIVACAINE MPF 0.25% 20 ML, EPINEPHrine 0.5 MG in TOTAL VOL... INT ART SCH (05:47)
[2020-02-04] MEDS: ONDANSETRON ODT 4 MG TAB.RAPDIS. PO SCH ×3 (05:47→12:00)
--- NOTE | 2020-02-04 05:48 | NUR ---
IAC port unable to infuse, 0600 dose held.
[2020-02-04] MEDS ORDERED: MAGNESIUM HYDROXIDE 2,400 MG/30 ML ORAL.SUSP. PO PRN (06:00)
[2020-02-04] MEDS: SENNOSIDES/DOCUSATE 8.6/50MG TABLET. PO SCH (08:12)
[2020-02-04] MEDS: CELECOXIB 100 MG CAPSULE. PO SCH (08:13)
[2020-02-04] MEDS: MULTIVITAMIN with MINERAL TABLET. PO SCH (08:13)
[2020-02-04] MEDS: ASPIRIN ENTERIC COATED 325 MG TABLET.DR. PO SCH ×2 (08:13→20:31)
[2020-02-04] MEDS: POLYETHYLENE GLYCOL 3350 17 GM PACKET. PO SCH (08:13)
[2020-02-04] MEDS: ALLOPURINOL 300 MG TABLET. PO SCH (08:16)
[2020-02-04] MEDS: INSULIN GLARGINE SYRINGE. SQ SCH ×2 (08:23→20:35)
[2020-02-04] MEDS ORDERED: ONDANSETRON PF 4 MG/2 ML VIAL. IVP PRN (12:00)
[2020-02-04] MEDS ORDERED: ONDANSETRON ODT 4 MG TAB.RAPDIS. PO PRN (12:00)
--- NOTE | 2020-02-04 15:27 | NUR ---
Patients IAC and Hemovac were removed around 1445. IAC site with a small amount of bloody drainage and hemovac site with a moderate amount-direct pressure held. Foam dressings applied over areas. BEKA intact/reinforced and working properly. Will continue to monitor.
[2020-02-04] MEDS ORDERED: BISACODYL 10 MG SUPP.RECT. PR PRN (16:00)
--- NOTE | 2020-02-04 16:48 | PDOC ---
PROGRESS NOTES Subjective Subjective Doing well, but still requiring IV pain meds for pain, in addition to oral meds. . Objective Vital Signs Vital Signs Date Time Temp Pulse Resp B/P (MAP) Pulse Ox O2 Delivery O2 Flow Rate FiO2 02/04/20 16:35 95 Room Air 02/04/20 05:45 98.3 65 18 126/58 (80) 98.3 02/03/20 17:17 8.0 Physical Exam BEKA dressing working. Dressing dry. Hemovac and pain catheter have been removed. Calf soft and NT. Homans neg. Able to DF and plantarflex foot with no evidence of neurovascular injury nor compartment syndrome. No blisters. Minimal erythema. Moderate swelling as expected. Labs Laboratory Tests Test 02/03/20 10:35 02/03/20 17:22 02/03/20 20:58 02/04/20 03:30 Glucose (Fingerstick) 95 mg/dL (70-99) 195 mg/dL (70-99) 207 mg/dL (70-99) Hemoglobin 12.3 g/dL (13.0-17.5) Hematocrit 37.3 % (39.0-53.0) Mean Corpuscular Hemoglobin Concent 33 g/dL (31-37) Test 02/04/20 07:40 02/04/20 11:29 02/04/20 16:40 Glucose (Fingerstick) 242 mg/dL (70-99) 210 mg/dL (70-99) 214 mg/dL (70-99) Laboratory Tests Test 02/03/20 17:22 02/03/20 20:58 02/04/20 03:30 02/04/20 07:40 Glucose (Fingerstick) 195 mg/dL (70-99) 207 mg/dL (70-99) 242 mg/dL (70-99) Hemoglobin 12.3 g/dL (13.0-17.5) Hematocrit 37.3 % (39.0-53.0) Mean Corpuscular Hemoglobin Concent 33 g/dL (31-37) Test 02/04/20 11:29 02/04/20 16:40 Glucose (Fingerstick) 210 mg/dL (70-99) 214 mg/dL (70-99) Imaging Postop x-rays and report reviewed by me. Satisfactory TKA without apparent complications. [facility] [address] [place] [address] IMAGING REPORT Signed PATIENT: LAINE BRANHAM ACCOUNT: [id number] : 1945 LOCATION: SURG AGE: 74 SEX: M [place]AM [place] [facility] [place] PHYSICIAN: BATSHEVA FIGUEROA MD REASON: POST OP PROCEDURE: KNEE RIGHT 2V Exam: Right knee 2 views INDICATION: Postop TECHNIQUE: Frontal and lateral views the chest Comparisons: None FINDINGS: Right knee arthroplasty changes are noted. Mild amount of air in the adjacent soft tissues. No acute fractures. Joint spaces are well-maintained. IMPRESSION: Right knee arthroplasty changes without evidence of acute complication. Electronically signed by: Farida Madrid MD (02/03/2020 4:56 PM) [id number] DICTATED and SIGNED BY: FARIDA MADRID MD DATE: 02/03/20 1656 Assessment Assessment POD#1 after TKA Plan Plan of Care Needs to stay in hospital for pain control at this time. Also needs keep blood sugar under control. I will order sliding scale. Continue DVT prophylaxis and PT. Discharge planning. Justicifation of Admission Dx: Justifications for Admission: Justification of Admission Dx: N/A BATSHEVA FIGUEROA MD Feb 04, 2020 16:48
[2020-02-04] MEDS ORDERED: DEXTROSE 50% 25 GM / 50ML DISP.SYRIN. IV PRN (17:00)
[2020-02-04] MEDS: INSULIN LISPRO 300 UNITS/3 ML VIAL. SQ SCH (17:30)
[2020-02-04 18:15] VITALS: BP 115/58
[2020-02-04] MEDS: TAMSULOSIN 0.4 MG CAP.ER.24H. PO SCH (20:31)
[2020-02-04] MEDS: metFORMIN 500 MG TABLET PO SCH (20:31)
[2020-02-04] MEDS: SIMVASTATIN 20 MG TABLET PO SCH (20:32)
[2020-02-04] MEDS: LISINOPRIL 20 MG TABLET PO SCH (20:33)
[2020-02-05] MEDS: oxyCODONE/APAP 5/325 1 TAB TABLET PO PRN ×4 (03:15→17:00)
[2020-02-05 04:45] LABS: HEMATOCRIT 36.9 % (39.0-53.0); HEMOGLOBIN 12.4 g/dL (13.0-17.5)
[2020-02-05 06:21] VITALS: BP 116/59
[2020-02-05] MEDS: CELECOXIB 100 MG CAPSULE. PO SCH (07:41)
[2020-02-05] MEDS: POLYETHYLENE GLYCOL 3350 17 GM PACKET. PO SCH (07:42)
[2020-02-05] MEDS: MULTIVITAMIN with MINERAL TABLET. PO SCH (07:42)
[2020-02-05] MEDS: ALLOPURINOL 300 MG TABLET. PO SCH (07:42)
[2020-02-05] MEDS: ASPIRIN ENTERIC COATED 325 MG TABLET.DR. PO SCH ×2 (07:42→20:41)
[2020-02-05] MEDS: SENNOSIDES/DOCUSATE 8.6/50MG TABLET. PO SCH (07:42)
[2020-02-05] MEDS: INSULIN LISPRO 300 UNITS/3 ML VIAL. SQ SCH ×3 (07:45→16:28)
[2020-02-05] MEDS: INSULIN GLARGINE SYRINGE. SQ SCH ×2 (08:12→20:45)
--- NOTE | 2020-02-05 12:28 | NUR ---
Patient is having a lot more pain today, stating the pain is almost ten times worse and is having more difficulties in therapy. PRN pain medication given upon request when due. BEKA working properly and GONZALO hose in place. IV still in place but patient states he does not want IV pain medication at this time. Sliding scale insulin needed to help manage change in blood sugars which is new for the patient. Education completed on novolog insulin. Will continue to monitor.
--- NOTE | 2020-02-05 17:13 | PDOC ---
PROGRESS NOTES Subjective Subjective Feels worse today than yesterday. Moving slowly in PT. Was considering SNU but perhaps can go home. Objective Vital Signs Vital Signs Date Time Temp Pulse Resp B/P (MAP) Pulse Ox O2 Delivery O2 Flow Rate FiO2 02/05/20 17:00 96 Room Air 02/05/20 06:21 98.2 72 18 116/59 (78) 98.2 02/03/20 17:17 8.0 Physical Exam Spotty drainage on BEKA and still a small leak. Calf soft NT. Labs Laboratory Tests Test 02/03/20 17:22 02/03/20 20:58 02/04/20 03:30 02/04/20 07:40 Glucose (Fingerstick) 195 mg/dL (70-99) 207 mg/dL (70-99) 242 mg/dL (70-99) Hemoglobin 12.3 g/dL (13.0-17.5) Hematocrit 37.3 % (39.0-53.0) Mean Corpuscular Hemoglobin Concent 33 g/dL (31-37) Test 02/04/20 11:29 02/04/20 16:40 02/04/20 20:29 02/05/20 03:20 Glucose (Fingerstick) 210 mg/dL (70-99) 214 mg/dL (70-99) 228 mg/dL (70-99) Hemoglobin 12.4 g/dL (13.0-17.5) Hematocrit 36.9 % (39.0-53.0) Mean Corpuscular Hemoglobin Concent 33 g/dL (31-37) Test 02/05/20 06:20 02/05/20 10:54 02/05/20 16:19 Glucose (Fingerstick) 153 mg/dL (70-99) 173 mg/dL (70-99) 147 mg/dL (70-99) Laboratory Tests Test 02/04/20 20:29 02/05/20 03:20 02/05/20 06:20 02/05/20 10:54 Glucose (Fingerstick) 228 mg/dL (70-99) 153 mg/dL (70-99) 173 mg/dL (70-99) Hemoglobin 12.4 g/dL (13.0-17.5) Hematocrit 36.9 % (39.0-53.0) Mean Corpuscular Hemoglobin Concent 33 g/dL (31-37) Test 02/05/20 16:19 Glucose (Fingerstick) 147 mg/dL (70-99) Assessment Assessment POD# 2 after TKA. Hyperglycemia. Plan Plan of Care Need to get blood sugars under control. Discharge planning for tomorrow, likely to home. Justicifation of Admission Dx: Justifications for Admission: Justification of Admission Dx: N/A BATSHEVA FIGUEROA MD Feb 05, 2020 17:13
[2020-02-05 17:30] VITALS: BP 142/54
[2020-02-05 20:30] VITALS: BP 129/52
[2020-02-05] MEDS: LISINOPRIL 20 MG TABLET PO SCH (20:40)
[2020-02-05] MEDS: TAMSULOSIN 0.4 MG CAP.ER.24H. PO SCH (20:41)
[2020-02-05] MEDS: SIMVASTATIN 20 MG TABLET PO SCH (20:41)
[2020-02-05] MEDS: metFORMIN 500 MG TABLET PO SCH (20:43)
[2020-02-06] MEDS: oxyCODONE/APAP 5/325 1 TAB TABLET PO PRN ×4 (02:15→16:04)
[2020-02-06 05:13] LABS: HEMATOCRIT 35.2 % (39.0-53.0); HEMOGLOBIN 11.6 g/dL (13.0-17.5)
[2020-02-06 05:39] VITALS: BP 128/43
[2020-02-06] MEDS: INSULIN LISPRO 300 UNITS/3 ML VIAL. SQ SCH ×2 (07:51→11:19)
[2020-02-06] MEDS: CELECOXIB 100 MG CAPSULE. PO SCH (07:52)
[2020-02-06] MEDS: MULTIVITAMIN with MINERAL TABLET. PO SCH (07:52)
[2020-02-06] MEDS: ALLOPURINOL 300 MG TABLET. PO SCH (07:52)
[2020-02-06] MEDS: SENNOSIDES/DOCUSATE 8.6/50MG TABLET. PO SCH (07:52)
[2020-02-06] MEDS: ASPIRIN ENTERIC COATED 325 MG TABLET.DR. PO SCH (07:53)
[2020-02-06] MEDS: POLYETHYLENE GLYCOL 3350 17 GM PACKET. PO SCH (07:55)
[2020-02-06] MEDS: INSULIN GLARGINE SYRINGE. SQ SCH (07:59)
--- NOTE | 2020-02-06 14:45 | PDOC ---
PROGRESS NOTES Subjective Subjective Doing well. Planning for discharge today. Objective Vital Signs Vital Signs Date Time Temp Pulse Resp B/P (MAP) Pulse Ox O2 Delivery O2 Flow Rate FiO2 02/06/20 12:43 92 Room Air 02/06/20 05:39 97.8 71 18 128/43 (71) 97.8 02/03/20 17:17 8.0 Physical Exam BEKA dressing changed. Incision benign. Serous drainage from Hemovac site is consistent with the severe synovitis and inflammation seen at surgery. This will likely resolve over the weekend but if not I will aspirate on Sunday. Labs Laboratory Tests Test 02/04/20 16:40 02/04/20 20:29 02/05/20 03:20 02/05/20 06:20 Glucose (Fingerstick) 214 mg/dL (70-99) 228 mg/dL (70-99) 153 mg/dL (70-99) Hemoglobin 12.4 g/dL (13.0-17.5) Hematocrit 36.9 % (39.0-53.0) Mean Corpuscular Hemoglobin Concent 33 g/dL (31-37) Test 02/05/20 10:54 02/05/20 16:19 02/05/20 20:29 02/06/20 04:55 Glucose (Fingerstick) 173 mg/dL (70-99) 147 mg/dL (70-99) 164 mg/dL (70-99) Hemoglobin 11.6 g/dL (13.0-17.5) Hematocrit 35.2 % (39.0-53.0) Mean Corpuscular Hemoglobin Concent 33 g/dL (31-37) Test 02/06/20 06:14 02/06/20 11:15 Glucose (Fingerstick) 114 mg/dL (70-99) 142 mg/dL (70-99) Laboratory Tests Test 02/05/20 16:19 02/05/20 20:29 02/06/20 04:55 02/06/20 06:14 Glucose (Fingerstick) 147 mg/dL (70-99) 164 mg/dL (70-99) 114 mg/dL (70-99) Hemoglobin 11.6 g/dL (13.0-17.5) Hematocrit 35.2 % (39.0-53.0) Mean Corpuscular Hemoglobin Concent 33 g/dL (31-37) Test 02/06/20 11:15 Glucose (Fingerstick) 142 mg/dL (70-99) Assessment Assessment POD #3 after TKA Plan Plan of Assisted today. Oral pain meds. Aspirin BID for DVT prophylaxis. Follow up with my office Sunday. Outpatient PT. Justicifation of Admission Dx: Justifications for Admission: Justification of Admission Dx: N/A BATSHEVA FIGUEROA MD Feb 06, 2020 14:45
[2020-02-06] MEDS ORDERED: OXYC1TAB15 PO (14:55)
[2020-02-06] MEDS ORDERED: CELE200C PO (14:55)
[2020-02-06] MEDS ORDERED: ASPI325T11 PO (14:55)
--- NOTE | 2020-02-06 14:56 | PDOC3 ---
Discharge Summary Visit Information Date of Admission: Feb 03, 2020 Date of Discharge: Feb 06, 2020 Admitting Diagnosis: osteoarthritis right knee Final Diagnosis osteoarthritis right knee aftercare after knee replacement Brief Hospital Course Allergies Allergies Coded Allergies Type Severity Reaction Last Updated Verified No Known Drug Allergies 02/03/20 No Vital Signs Vital Signs Date Time Temp Pulse Resp B/P (MAP) Pulse Ox O2 Delivery O2 Flow Rate FiO2 02/06/20 12:43 92 Room Air 02/06/20 05:39 97.8 71 18 128/43 (71) 97.8 Lab Results Laboratory Tests Test 02/04/20 16:40 02/04/20 20:29 02/05/20 03:20 02/05/20 06:20 Glucose (Fingerstick) 214 mg/dL (70-99) 228 mg/dL (70-99) 153 mg/dL (70-99) Hemoglobin 12.4 g/dL (13.0-17.5) Hematocrit 36.9 % (39.0-53.0) Mean Corpuscular Hemoglobin Concent 33 g/dL (31-37) Test 02/05/20 10:54 02/05/20 16:19 02/05/20 20:29 02/06/20 04:55 Glucose (Fingerstick) 173 mg/dL (70-99) 147 mg/dL (70-99) 164 mg/dL (70-99) Hemoglobin 11.6 g/dL (13.0-17.5) Hematocrit 35.2 % (39.0-53.0) Mean Corpuscular Hemoglobin Concent 33 g/dL (31-37) Test 02/06/20 06:14 02/06/20 11:15 Glucose (Fingerstick) 114 mg/dL (70-99) 142 mg/dL (70-99) Laboratory Tests Test 02/05/20 16:19 02/05/20 20:29 02/06/20 04:55 02/06/20 06:14 Glucose (Fingerstick) 147 mg/dL (70-99) 164 mg/dL (70-99) 114 mg/dL (70-99) Hemoglobin 11.6 g/dL (13.0-17.5) Hematocrit 35.2 % (39.0-53.0) Mean Corpuscular Hemoglobin Concent 33 g/dL (31-37) Test 02/06/20 11:15 Glucose (Fingerstick) 142 mg/dL (70-99) Brief Hospital Course 74 year old who presented with knee osteoarthritis, for elective total knee arthroplasty. The patient underwent total knee arthroplasty under general anesthesia the day of admission. Perioperative antibiotics and DVT prophylaxis were used. Postoperatively physical therapy and case management were consulted. The patient progressed and is stable for discharge. Discharge Information Condition at Discharge: Stable Follow Up: Weeks Disposition/Orders: D/C to Home w/ HH Scheduled Allopurinol (Allopurinol), 300 MG PO DAILY, (Reported) Aspirin (Aspirin Ec), 325 MG PO BID Celecoxib (Celebrex), 1 CAP PO DAILY Ferrous Sulfate (Iron), 1 TAB PO DAILY, (Reported) Lisinopril (Lisinopril), 20 MG PO HS, (Reported) Metformin Hcl (Metformin Hcl), 500 MG PO HS, (Reported) Nph, Human Insulin Isophane (Novolin N), 30 UNIT SQ BID, (Reported) Polyethylene Glycol 3350 (Miralax), 1 PKT PO DAILY, (Reported) Simvastatin (Simvastatin), 20 MG PO HS, (Reported) Tamsulosin Hcl (Flomax), 0.8 MG PO HS, (Reported) Vitamin D3/Folic Acid (Noxifol-D3 2,500 Unit-1 mg Tab), 1 TAB PO DAILY, (Reported) Scheduled PRN Hydrocodone Bit/Acetaminophen (Hydrocodone-Apap 5-325 ), 1 TAB PO PRN Q6HRS PRN for PAIN, (Reported) Oxycodone/Apap 5-325 (Percocet 5-325 Mg Tablet ), 1-2 TAB PO PRN Q4HRS PRN for PAIN Discontinued Medications Aspirin (Aspirin), 81 MG PO DAILY, (Reported) Multivitamin (Multivitamins), 1 EACH PO DAILY, (Reported) Patient Instructions Patient Instructions Continue to weight bearing as tolerated with walker. Keep BEKA dressing intact and dry. Change drain site dressing twice a day or as needed to keep dry. Follow up with Dr. Hernández's office Sunday. Call for appointment unless already scheduled. Continue enteric coated aspirin 325 mg by mouth twice a day for 30 days to prevent blood clots. Justicifation of Admission Dx: Justifications for Admission: Justification of Admission Dx: N/A BATSHEVA HERNÁNDEZ MD Feb 06, 2020 14:56
--- NOTE | 2020-02-06 15:00 | SNU/HH DC ---
DISCHARGE WITH HOME HEALTH DISCHARGE INFORMATION: Discharge Date: Feb 06, 2020 Final Diagnosis: osteoarthritis right knee aftercare following right knee replacement Condition on Discharge: Stable CODE STATUS: Code Status: Full HOME HEALTH: Face to Face: I certify this patient is under my care and that I, or a nurse practitioner or physician's public services assistant working with me, had a face to face encounter that meets the physician face to face encounter requirements with this patient on 02/06/2020. Halfway For: Assess & Educate Safety RN For Eval/Treatment: Yes Physical Therapy For: Evalulation/Treatment Occupational Therapy For: Evaluation/Treatment Pt Meets Homebound Status: Unsteady balance w/ amb,, Limited distance walking POST DISCHARGE ORDERS: Activity Instructions for Disc: Activity as tolerated, Avoid exertion Weight Bearing Status after Di: As tolerated Bathing Instructions: Shower-keep dressing dry, No Tub Bath until see DIET AFTER DISCHARGE: ADA Wound/Incision Care: Ice to area for comfort, Keep wound/cast CDI, Do not change dressing, Other, see below Other wound/incision instructi: DO NOT change BEKA dressing. It will remain in place till your follow up. CHECKS AFTER DISCHARGE: Checks after discharge: Check blood sugar, ac/hs FOLLOW-UP: Follow Up With: Dr Hernández on SundayFebruary 08 at 1:15. [phone] Additional Instructions: change drain site dressing twice a day or as needed to keep dressing dry. TREATMENT/EQUIPMENT ORDERS: Adaptive Equipment Issued: None, Front wheeled walker CERTIFICATION STATEMENT: Certification Statement: Certification Statement: Based on the above finding, I certify that this patient is confined to the home and needs intermittent long term care, physical therapy and/or speech therapy, or continues to need occupational therapy.~ This patient is under my care, and I have initiated the establishment of the plan of care.~ This patient will be followed by myself or a community physician who will periodically review the plan of care. Home Meds Active Scripts Celecoxib (CELEBREX) 200 Mg Capsule, 1 CAP PO DAILY for yaniv for 30 Days, #30 CAP 0 Refills Prov:BATSHEVA HERNÁNDEZ MD 02/06/20 Aspirin (ASPIRIN EC) 325 Mg Tablet., 325 MG PO BID for prevent blood clots for 30 Days, #60 TAB.SR take 325 mg coated aspirin by mouth twice a day for 30 days to prevent blood clots Prov:BATSHEVA HERNÁNDEZ MD 02/06/20 Oxycodone/Apap 5-325 (PERCOCET 5-325 MG TABLET ) 1 Each Tablet, 1-2 TAB PO PRN Q4HRS PRN for PAIN for 7 Days, TAB 1-2 tablets every 4 hours as needed for pain Prov:BATSHEVA HERNÁNDEZ MD 02/06/20 Reported Medications Vitamin D3/Folic Acid (Noxifol-D3 2,500 Unit-1 mg Tab) 2,500 Unit Tablet, 1 TAB PO DAILY for SUPPLEMENT for 30 Days, #30 TAB 0 Refills 01/30/20 Hydrocodone Bit/Acetaminophen (HYDROCODONE-APAP 5-325 ) 1 Tab Tablet, 1 TAB PO PRN Q6HRS PRN for PAIN, TAB 0 Refills 01/30/20 Ferrous Sulfate (IRON) 325 Mg Tablet, 1 TAB PO DAILY for ANEMIA for 30 Days, #30 TAB 0 Refills 01/30/20 Polyethylene Glycol 3350 (MIRALAX) 17 Gm Powd.pack, 1 PKT PO DAILY for PREVENT CONSTIPATION, PKT 06/20/19 Tamsulosin Hcl (FLOMAX) 0.4 Mg Cap.er.24h, 0.8 MG PO HS for BPH, TAB 06/20/19 Nph, Human Insulin Isophane (NOVOLIN N) 100 Unit/1 Ml Vial, 30 UNIT SQ BID for [id number] BLOOD SUGAR, VIAL 04/26/18 Lisinopril (LISINOPRIL) 20 Mg Tablet, 20 MG PO HS for FOR HYPERTENSION, #30 TAB 0 Refills 04/26/18 Metformin Hcl (METFORMIN HCL) 500 Mg Tablet, 500 MG PO HS for ANTI-DIABETIC, TAB 0 Refills 04/26/18 Simvastatin (SIMVASTATIN) 20 Mg Tablet, 20 MG PO HS for FOR CHOLESTEROL, #30 TAB 0 Refills 04/26/18 Allopurinol (ALLOPURINOL) 300 Mg Tablet, 300 MG PO DAILY, TAB 04/26/18 Discontinued Reported Medications Aspirin (ASPIRIN) 81 Mg Tab.chew, 81 MG PO DAILY, TAB.CHEW 04/26/18 Multivitamin (MULTIVITAMINS) 1 Each Tablet, 1 EACH PO DAILY, TAB 04/26/18 BATSHEVA HERNÁNDEZ MD Feb 06, 2020 15:00
--- NOTE | 2020-02-06 16:19 | NUR ---
Patient left the building around 1615 with his and daughter. Discharge education done by this nurse, therapy, and the doctor prior to discharge. BEKA changed and old drain site changed as well. NO IV access present at discharge. Follow up appointment gone over in detail with family. Medication and dressing care gone over with the patient, his , and his daughter. Scripts were all sent to the pharmacy per Dr Hernández. No concerns noted at discharge.
--- NOTE | 2020-02-06 18:06 | PATHOLOGY ---
[facility] Accession Number: [id number] . 01 Material submitted: . knee - RIGHT KNEE BONE AND TISSUE. Modifiers: right . 02 Diagnosis: Segments of bone and soft tissue, right total knee arthroplasty: - Degenerative arthritis. 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 (JPM/db; 02/06/2020) LBQ 02/06/2020 1542 Local . 02 Electronically signed: . Aman Reyes MD, Pathologist NPI- [id number] . 01 Gross description: . The specimen is received in formalin, labeled "Geovani Sumner, right knee bone and tissue" and consists of multiple segments of bone including tibial plateau as well as yellow soft tissue measuring 15.1 x 10.6 x 1.4 cm in aggregate. The soft tissue has brown villous tissue. The meniscus is present. The articular surfaces are rough and granular with eburnation. Candle Wrapping Machine Operator sections are submitted in A1-A2 following decalcification of A1. (JM; 02/05/2020) JFQ/JFQ 02/05/2020 1618 Local . 02 Pathologist provided ICD-10: M17.11, M65.9 . 02 CPT . 024769, [id number] Specimen Comment: A courtesy copy of this report has been sent to [phone], [phone] Specimen Comment: [id number] Specimen Comment: Report sent to / DR BARBER Performed at: 01 [facility] [address] [facility] [address], [place] [id number] MD Jose Daniel Gonzalez MD Phone: [phone] Performed at: 02 [facility] [address] [place], [place] [id number] MD Aman Reyes MD Phone: [phone]
== END 2020-02-06 16:15 | disposition home health service (06) | DRG 470 ==
LOC: SURG 09:47 → 4 SOUTHEST 17:08 → OBSVTOIN 02-05 12:51
PROVIDERS: ADMIT Orthopaedic Surgery; ATTEND Orthopaedic Surgery
PROC: 8E0Y0CZ Robotic Assisted Procedure of Lower Extremity, Open Approach (ICD-10-PCS; 2020-02-03)
PROC: 0SRC0J9 Replacement of Right Knee Joint with Synthetic Substitute, Cemented, Open Approach (ICD-10-PCS; principal; 2020-02-03 10:45)
DX: M17.0 Bilateral primary osteoarthritis of knee (principal); M65.861 Other synovitis and tenosynovitis, right lower leg; I10 Essential (primary) hypertension; M10.9 Gout, unspecified; E11.65 Type 2 diabetes mellitus with hyperglycemia; Z80.9 Family history of malignant neoplasm, unspecified; Z79.899 Other long term (current) drug therapy
CPT/HCPCS: 36415; 73560; 82962; 85014; 85018; 86850; 86900; 86901; 88304; 88311; A7015; C1713; G0378; G0379; J0171; J0330; J0690; J1100; J1815; J1885; J2270; J2405; J2704; J2795; J3010; J3260; J3370; J3490; J7030; J7060; J7120; 97116-GP; 97150-GP; 97530-GP; 97535-GO; A4461; C1769; C1776

== ENCOUNTER → 2020-06-08 | Outpatient (CLI) | payer MEDICARE ==
[~2020-06-08] MED LIST changes: -ACETAMINOPHEN 500 MG TABLET PO PRN; +ASPI325T11 PO; +CELE200C PO; -CELECOXIB 100 MG CAPSULE. PO SCH; -DEXAMETHASONE SOD PHOS 4 MG/ML VIAL ONE; -GLYCOPYRROLATE 1 MG/5 ML VIAL. ONE; -HYDROmorphone 2 MG/ML VIAL IV PRN; -IV RINGERS,LACTATED 1000ML 1,000 ML IV SCH; -LIDOCAINE 1% PF 2 ML VIAL. ID PRN; -LIDOCAINE 2% PF 5 ML VIAL. ONE; -MORPHINE SULFATE 2 MG/ML VIAL. IV PRN; -MORPHINE SULFATE 5 MG, KETOROLAC 30MG VIAL 30 MG, ROPIVacaine 0.5% PF 60 ML, EPINEPHrin... INT ART ONE; -ONDANSETRON PF 4 MG/2 ML VIAL. IV PRN; -ONDANSETRON PF 4 MG/2 ML VIAL. ONE; +OXYC1TAB15 PO; -PROCHLORPERAZINE 10 MG/2 ML VIAL. IV PRN; -PROPOFOL 10 MG/ML (20ML) VIAL. IV ONE; -ROCURONIUM 50 MG/5 ML VIAL. ONE; -TRANEXAMIC ACID 1,000 MG in IV NS 50ML -- 1ST BAG INJ ONE; -TRANEXAMIC ACID 1,000 MG in IV NS 50ML -- 2ND BAG INJ ONE; -ceFAZolin SODIUM 3 GM in IV D5W 100 ML IV PRN; -fentaNYL PF VIAL 100 MCG/2 ML VIAL IV PRN; -fentaNYL PF VIAL 100 MCG/2 ML VIAL ONE
[2020-06-08 14:33] LABS: PROTHROMBIN TIME PATIENT 13.5 SEC (11.7-14.0)
[2020-06-08 14:41] LABS: ALBUMIN 3.5 g/dL (3.4-5.0); C-REACTIVE PROTEIN 0.6 mg/L (0-3.3); CALCIUM 9.6 mg/dL (8.5-10.1); CREATININE 1.2 mg/dL (0.7-1.3); GFR 58.9; POTASSIUM 4.6 mmol/L (3.5-5.1)
[2020-06-09 05:11] LABS: HEMOGLOBIN A1C 6.1 % (4.8-5.6)
== END ==
LOC: LAB 13:20
PROVIDERS: ATTEND Orthopaedic Surgery
DX: Z01.812 Encounter for preprocedural laboratory examination (principal); M17.12 Unilateral primary osteoarthritis, left knee; Z96.652 Presence of left artificial knee joint
CPT/HCPCS: 36415; 80048; 82040; 82306; 83036; 85610; 85730; 86140; 87641

== ENCOUNTER → 2020-06-25 | Outpatient (CLI) | payer MEDICARE ==
[2020-06-25 14:58] LABS: BASO # 0.1 x10^3/uL (0.0-0.2); BASO % 1 % (0-3); EOS # 0.3 x10^3/uL (0.0-0.7); EOS % 4 % (0-3); HEMATOCRIT 41.6 % (39.0-53.0); HEMOGLOBIN 13.8 g/dL (13.0-17.5); LYMPH # 1.9 x10^3/uL (1.0-4.8); LYMPH % 27 % (24-48); MEAN CORPUSCULAR HEMOGLOBIN 33 pg (25-35); MEAN CORPUSCULAR HGB CONC 33 g/dL (31-37); MEAN CORPUSCULAR VOLUME 99 fL (79-100); MONO # 0.7 x10^3/uL (0.0-1.1); MONO % 10 % (0-9); NEUT # 4.3 x10^3/uL (1.8-7.7); NEUT % 59 % (31-73); PLATELET COUNT 155 x10^3/uL (140-400); RED BLOOD COUNT 4.21 x10^6/uL (4.30-5.70); RED CELL DISTRIBUTION WIDTH 14.4 % (11.5-14.5); WHITE BLOOD COUNT 7.2 x10^3/uL (4.0-11.0)
== END ==
LOC: LAB 14:14
PROVIDERS: ATTEND Orthopaedic Surgery
DX: Z01.812 Encounter for preprocedural laboratory examination (principal); M17.12 Unilateral primary osteoarthritis, left knee; Z96.652 Presence of left artificial knee joint; Z88.1 Allergy status to other antibiotic agents; Z20.828 Contact with and (suspected) exposure to other viral communicable diseases
CPT/HCPCS: 85025; U0003